=== PATIENT | female | born 2000 | race African-American/Black ===

== ENCOUNTER → 2020-11-09 00:47 | Outpatient (CLI) | payer BC, SELFPAY ==
[2020-11-09 21:26] LABS: SARS-CoV-2 RNA PCR Negative
== END ==
PROVIDERS: Visit Provider Surgery Plastic and Reconstructive Surgery
DX: Z01.812 Encounter for preprocedural laboratory examination (principal); Z20.822 Contact with and (suspected) exposure to COVID-19
CPT/HCPCS: C9803; U0003; U0005

== ENCOUNTER 2020-11-12 00:19 | Day surgery (SDC) | payer BC, SELFPAY ==
[2020-11-05 13:25] VITALS: BMI 30.6
[2020-11-12] VITALS (10 sets, daily range): BP systolic 99–134; BP diastolic 60–84; PULSE 60–108; RESP 9–20; TEMP 36.4–36.5; O2SAT 98–100
[2020-11-12] MEDS: LACTATED RINGERS 1,000 ML 30 ML IV CONT ×2 (10:28→15:02)
[2020-11-12 10:37] LABS: Urine Cotinine NEGATIVE
--- NOTE | 2020-11-12 11:25 | WPDHPUPDATE1 ---
History and Physical Update Update Date/Time: 11/12/20 11:25 History and Physical has been reviewed, including an updated exam of the patient. There are NO changes in the patient's condition. Risks, benefits, and alternatives have been discussed and questions answered. Patient agrees to proceed with procedure.
--- NOTE | 2020-11-12 11:32 | WPDANESEPPF ---
Anes - Initial Pre Proc Eval Procedure: Operation Date: 11/12/20 12:30 Proposed Procedures p Bilateral Reduction Mammoplasty - Isai Moya MD Date/Time: 11/12/20 11:32 Surgeon: Isai Moya MD Pre Op Diagnosis: macromastia Patient Data Age: 20 Gender: F Height: 1.68 m Weight: 87.2 kg Last Vital Signs Temp 36.4 C L 11/12/20 10:08 Pulse 60 11/12/20 10:08 Resp 18 11/12/20 10:08 BP 108/71 11/12/20 10:08 Pulse Ox 100 11/12/20 10:08 Allergies Allergy/AdvReac Type Severity Reaction Status Date / Time No Known Allergies Allergy Verified 10/28/20 17:10 Home Medications Medication Instructions Recorded Confirmed Type docusate sodium 100 mg capsule 100 mg PO BID #14 cap 10/28/20 11/05/20 Rx ondansetron HCl 4 mg tablet 4 mg PO Q6H PRN #30 tablet 10/28/20 11/05/20 Rx hydrocodone 5 mg-acetaminophen 325 1 tablet PO Q6H PRN #15 tablet 10/29/20 11/05/20 Rx mg tablet Laboratory Tests 11/12/20 10:19 Cotinine Negative Patient hx anesthesia problems: none Family hx anesthesia problems: none PMFSH Family History Family History Grandparent Diabetes mellitus Social History Social History Smoking status: Never smoker Alcohol intake: never Substance use: never Living arrangements: with family Gender identity (if verbalized by the patient): Female Sexual Orientation (if Verbalized by the Patient): Straight or Heterosexual Spiritual care concerns: No Anes - Eval Final PreProcedure Day of Procedure 11/12/20 11:32 Patient weight: obese Heart: regular rate and rhythm Lungs: clear to auscultation Airway: Mallampati scale class 1 Neurological: alert and oriented Last oral intake: >/= 8 hours ASA classification: II Emergent: no Anesthetic plan: proceed Anesthesia type and monitoring: general ETT and standard monitoring Informed Consent: The patient's anesthetic plan and its attendant risks and benefits were discussed with the patient/family/POA. Questions were solicited and answers provided to the satisfaction of the patient/family/POA.
--- NOTE | 2020-11-12 11:52 | W.PM.PROC2 ---
Procedure Note - Detailed Date of Procedure 11/12/20 Pre-op Diagnosis macromastia Post-op Diagnosis same Procedure Performed Bilateral reduction mammaplasty Surgeon Isai Moya MD Anesthesia general Findings Inverted T Free nipple graft Tissue removed: Right - [grams] grams Left - [grams] grams Description of Procedure She is here today for bilateral breast reduction. Previously and again today the risks, benefits, alternatives were discussed in extensive detail. I wanted her to be very realistic about the risks involved as well as expectations. We discussed aftercare and what to monitor for. She understands we can never guarantee final breast size and there will always be asymmetry. I was very upfront and honest about the risks of sensation change and even nipple loss (). Made sure answered all of her questions to her satisfaction today and consent was obtained. She was marked in the preoperative holding area with their verification. The patient was taken to the operating room placed supine on the operating table. Anesthesia was provided by anesthesiology. She was prepped and draped in a standard sterile fashion. A surgical time-out was taken. Stab incisions were made and I tumessed with a tumescent solution. I marked out the nipple-areolar complex at 42 mm. This was excised and kept on moist gauze. I then removed the inferior portion of the breast as well as the central keel to get shape based on preoperative planning. At this point copiously irrigated with saline solution and verified a strict hemostasis. I reapproximated the pillars using a 2-0 PDS as well as along the IMF. I tailor tacked the breast into place with ellis. She was placed in a sitting position. I verified the nipple-areolar complex position based on preoperative markings, intraoperative measurements, and observation which were in full agreement. This nipple-areolar complex was marked at 42 mm in size. She was placed supine. I closed the vertical incision with 3-0 Monocryl in the IMF with 3-0 stratafix. I then placed supine and sutured into place with 5-0 Chromic and a tie over bolster of xeroform / cotton with 3-0 Nylon. I ran a #1 tensile strength strattafix along the IMF followed by 3-0 strattafix. Then everything was closed using a running subcuticular 4-0 Monocryl followed by Steri-Strips. A dressing was placed followed by surgical bra. Patient was awoke and taken to PACU without difficulty. All instrument sponge counts were correct at the end of the case. Estimated Blood Loss 30 Drains No Packing No Pathology yes (Bilateral breast tissue) Complications No immediate complications Condition stable Disposition PACU
[2020-11-12] MEDS: TRANEXAMIC ACID 1,000MG/ISO100 1,000 MG/100 ML BAG 200 MG IVPB (12:04)
[2020-11-12] MEDS: ceFAZolin 2 GM/D5W 50 ML 2 GM/50 ML BAG IVPB (12:13)
[2020-11-12] MEDS: LACTATED RINGERS IRRIG 1,000 ML, LIDOCAINE HCL 1% LOCAL INJ 50 ML, EPINEPHrine HCL INJ ... INFILTRATE (12:34)
--- NOTE | 2020-11-12 14:48 | SUR.OPER ---
LEFT BREAST TISSUE 1395.8GM RIGHT BREAST TISSUE 1309.7GM
[2020-11-12] MEDS: ONDANSETRON INJ 4 MG/2 ML VIAL IV PUSH (15:59)
[2020-11-12] MEDS: SCOPOLAMINE 1.5 MG PATCH TRANSDERM (16:32)
[2020-11-12] MEDS: diphenhydrAMINE HCl INJ 50 MG/ML VIAL 25 MG IV PUSH (16:32)
== END 2020-11-12 16:52 | disposition home or self-care (01) ==
PROVIDERS: Visit Provider Surgery Plastic and Reconstructive Surgery
PROC: 0HBV0ZZ Excision of Bilateral Breast, Open Approach (ICD-10-PCS; CPT 19318; principal; 2020-11-12 12:30)
DX: N62 Hypertrophy of breast (principal); N60.32 Fibrosclerosis of left breast; N60.31 Fibrosclerosis of right breast; N60.42 Mammary duct ectasia of left breast; N60.41 Mammary duct ectasia of right breast; Z79.899 Other long term (current) drug therapy; E66.9 Obesity, unspecified; Z68.31 Body mass index [BMI] 31.0-31.9, adult
CPT/HCPCS: 19318; 80307; 88305; A9270; J0171; J0690; J1170; J1200; J2250; J2405; J3010; J7120